=== PATIENT | male | born 1955 | race Caucasian/White ===

== ENCOUNTER → 2020-06-02 10:59 | Outpatient (CLI) | payer OTHER, SELFPAY ==
--- NOTE | 2020-06-02 11:04 | DI.MRI.S_ITS ---
PROCEDURE: MR KNEE RT WO CON INDICATIONS: RIGHT KNEE PAIN TECHNIQUE: Noncontrast sagittal PD fast spin echo and T2 fast spin echo with fat saturation, sagittal 3-D FLASH with fat saturation; coronal T1 spin echo and PD fast spin echo with fat saturation, and axial PD fast spin echo with fat saturation through the knee. COMPARISON: [facility], CR, XR KNEE 4+ VIEWS RIGHT, 04/19/2020, 9:46. FINDINGS: Image quality: Excellent. Menisci: Linear oblique high signal intensity traverses the posterior horn medial meniscus, demonstrating inferior articular surface extension. Partial detachment of the free edge of the posterior horn medial meniscus. Lateral meniscus is intact. Cruciate ligaments: The anterior cruciate ligament graft and posterior cruciate ligaments appear intact. Medial structures: The medial collateral ligament appears intact. Visualized portions of the pes anserinus tendons appear normal. No abnormal bursal fluid. Lateral structures: The lateral collateral ligament demonstrates low-grade partial-thickness tearing at the femoral origin. The long and short heads of the biceps femoris tendon appear intact. The popliteus tendon appears normal. Iliotibial band appears normal. Anterior structures: The quadriceps and patellar tendons appear intact. Mild T2 signal elevation within the quadriceps and patellar tendons at the patellar insertion sites. Patellar alignment is normal. No femoral trochlear dysplasia or ventral trochlear prominence. No edema in the infrapatellar fat pad. Bones and cartilage: No bone marrow contusions or fractures. There is mild tricompartmental periarticular osteophyte formation. Mild articular cartilage loss diffusely overlies the weight-bearing aspects of the medial femoral condyle and medial tibial plateau. Joint space: There is a small knee joint effusion and a trace Lozada's cyst. Small ganglion cyst along the popliteus. Normal appearing synovial plicae are incidentally noted. IMPRESSION: 1. Intact ACL graft. 2. Medial meniscal tear. 3. 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 4. Mild patellar and quadriceps tendinopathy. 5. Low-grade partial-thickness tearing of the lateral collateral ligament. Dictated by: Lashay Goodrich M.D. on 06/04/2020 at 12:36 Approved by: Lashay Goodrich M.D. on 06/04/2020 at 12:38
== END ==
PROVIDERS: Referring Provider Orthopaedic Surgery; Visit Provider Orthopaedic Surgery
DX: S83.241A Other tear of medial meniscus, current injury, right knee, initial encounter (principal); M17.11 Unilateral primary osteoarthritis, right knee; S83.421A Sprain of lateral collateral ligament of right knee, initial encounter
CPT/HCPCS: 73721

== ENCOUNTER → 2020-09-20 07:38 | Outpatient (CLI) | payer OTHER, SELFPAY ==
[2020-09-20 08:21] LABS: Add Manual Diff / Slide Review NO; Basophils Absolute Auto 100 /uL (0-100); Basophils Percent Auto 0.9 % (0-2); Eosinophils Absolute Auto 300 /uL (0-450); Hematocrit 41.8 % (41-53); Hemoglobin 14.3 g/dL (13.5-17.5); Lymphocytes Absolute Auto 2100 /uL (1100-4500); Lymphocytes Percent Auto 29.9 % (25-40); Mean Corpuscular HGB Conc 34.3 % (30-36); Mean Corpuscular Hemoglobin 31.6 PG (26-34); Mean Corpuscular Volume 92.2 fL (80-100); Monocytes Absolute Auto 600 /uL (0-900); Monocytes Percent Auto 8.3 % (3-14); Neutrophils Absolute Auto 3900 /uL (1500-7000); Neutrophils Percent Auto 55.9 % (50-75); Platelet Count 158 X10^3/uL (150-400); Red Blood Cell Count 4.53 X10^6/uL (4.5-5.9); Red Cell Distribution Width 14.1 % (11.6-14.8)
[2020-09-20 08:30] LABS: Hemoglobin A1C% w Est Avg Glu 5.5 % (4.0-6.0)
[2020-09-20 08:35] LABS: Blood Urea Nitrogen 15 mg/dL (9-20); Calcium 9.6 mg/dL (8.4-10.2); Carbon Dioxide 27 mmol/L (22-32); Chloride 105 mmol/L (98-107); Estimated Glomerular Filt Rate > 60.0 mL/min (>60); Glucose 104 mg/dL (80-110); HEMOLYSIS < 15 (0-50); Potassium 4.6 mmol/L (3.4-5.1); Sodium 139 mmol/L (137-145)
--- NOTE | 2020-09-20 11:01 | DI.CT.S_ITS ---
PROCEDURE: CT LUMBAR SPINE WO CON INDICATIONS: Spinal stenosis, lumbar region without neurogenic TECHNIQUE: Noncontrast 3 mm thick sections acquired from the T12 level to the sacrum. Sagittal and coronal reformats were constructed. For radiation dose reduction, the following was used: automated exposure control. COMPARISON: [facility], MR, MR LUMBAR SPINE WITHOUT CONTRAST, 07/25/2020, 8:53. [facility], CR, XR LUMBAR SPINE 2 OR 3 VIEWS, 09/04/2020, 15:46. FINDINGS: Image quality: Excellent. Bones: No acute vertebral body compression fractures. No suspicious lytic or blastic bony lesions. No pars defects. Mild levoconvex scoliotic curvature is noted. There is minimal retrolisthesis seen at the L1-L2 level. T12-L1: There is moderate loss of disc height. Mild generalized disc bulge is seen. No significant neural foraminal or central canal narrowing can be seen. L1-L2: Moderate to severe loss of disc height is seen. Vacuum disc phenomenon is seen at this level. Endplate irregularity and sclerosis can be seen. Mild to moderate disc bulge is seen at this level. There is [id number] left-sided and moderate right-sided neural foraminal narrowing seen. Mild central canal narrowing is seen. L2-L3: There is mild loss of disc height seen. Mild to moderate disc bulge is seen. Mild to moderate bilateral neural foraminal narrowing is seen. Mild to moderate central canal narrowing is seen. L3-L4: There is mild loss of disc height. Moderate disc bulge is seen at this level. Moderate bilateral neural foraminal narrowing is seen. Moderate central canal narrowing is seen. L4-L5: There is moderate loss of disc height. Moderate disc bulge is seen. Vacuum disc phenomenon is seen at this level. Moderate facet joint hypertrophy is seen. There is moderate to severe bilateral neural foraminal narrowing seen. At least moderate central canal narrowing is seen. L5-S1: Moderate to severe loss of disc height is seen. Vacuum disc phenomenon is seen at this level. Endplate irregularity and sclerosis can be seen. At least moderate disc bulge is seen. Moderate to severe bilateral neural foraminal narrowing is seen. Minimal central canal narrowing is seen. Soft tissues: No retroperitoneal masses or hematomas. Visualized aorta is normal in caliber. Colonic diverticulosis is seen, without findings of active diverticulitis. IMPRESSION: Multiple levels of lumbar spine degenerative change are seen, which are overall worst inferiorly. Degenerative changes are similar to the recent prior MRI. Incidental note is made of: Diverticulosis, without active diverticulitis Dictated by: Bran Sadler M.D. on 09/20/2020 at 13:33 Approved by: Bran Sadler M.D. on 09/20/2020 at 13:37
== END ==
PROVIDERS: Referring Provider Orthopaedic Surgery Orthopaedic Surgery of the Spine; Visit Provider Orthopaedic Surgery Orthopaedic Surgery of the Spine
DX: Z01.818 Encounter for other preprocedural examination (principal); Z01.812 Encounter for preprocedural laboratory examination; M48.061 Spinal stenosis, lumbar region without neurogenic claudication; M47.816 Spondylosis without myelopathy or radiculopathy, lumbar region; R73.9 Hyperglycemia, unspecified; K57.90 Diverticulosis of intestine, part unspecified, without perforation or abscess without bleeding
CPT/HCPCS: 36415; 72131; 80048; 83036; 85025; 93005; 93010

== ENCOUNTER → 2020-10-06 09:13 | Outpatient (CLI) | payer OTHER, SELFPAY ==
[2020-10-06 10:59] LABS: COVID19 -Nasal RAPID Negative (Negative)
== END ==
PROVIDERS: Referring Provider Physician Assistant; Visit Provider Physician Assistant
DX: Z20.822 Contact with and (suspected) exposure to COVID-19 (principal)
CPT/HCPCS: 87635

== ENCOUNTER 2020-10-08 05:57 | Day surgery (SDC) | payer OTHER, SELFPAY ==
[2020-10-01 12:22] VITALS: BMI 27.8
[2020-10-08] VITALS (17 sets, daily range): BP systolic 107–132; BP diastolic 62–93; PULSE 72–119; RESP 12–18; TEMP 35.2–37.2; O2SAT 90–98; BMI 27.8
--- NOTE | 2020-10-08 | DI.RAD.S_ITS ---
PROCEDURE: XR LUMBAR SPINE 2-3V INDICATIONS: L4-5, L5-S1 TLIF TECHNIQUE: 2 intraoperative views of the lumbar spine were acquired. COMPARISON: [facility], CT, CT LUMBAR SPINE WO CON, 09/20/2020, 11:03. FINDINGS: Bones: Pedicle screw fixation at L4-S1 with intervertebral body spacers. The pedicle screws project in the expected location. Anterior vertebral body osteophytes. IMPRESSION: Intraoperative guidance provided. Dictated by: Manuel Ogden M.D. on 10/08/2020 at 13:28 Approved by: Manuel Ogden M.D. on 10/08/2020 at 13:29
--- NOTE | 2020-10-08 07:30 | PM.PREOP ---
Pre-operative Note COVID-19 COVID-19 status: Negative Result date/Date tested (Pos, Neg/Pending): 10/06/20 Interval Note History & Physical reviewed/Exam performed by Physician: Yes Changes to H&P: No
[2020-10-08 07:49] LABS: INR 1.1 (0.9-1.3); Prothrombin Time 11.9 SECONDS (10.1-12.7)
[2020-10-08 07:52] LABS: PTT Partial Thromboplastin Tim 35 SECONDS (26.4-36.2)
[2020-10-08] MEDS: CEFAZOLIN 1 GM VIAL 2 GM IV ×2 (08:14→19:45)
--- NOTE | 2020-10-08 08:40 | SUR.OPER ---
Prone on spine table, head in foam head support, padded chest and pelvic supports, gel pad at knees, lower legs supported by pillows; nipples, genitalia and toes free of pressure, arms secured on foam padded arm boards at <90 degrees abduction. Tape over blanket at thigh secured to table.
[2020-10-08] MEDS: BUPIVACAINE LIPOSOME 266 MG/20 ML VIAL INJ (08:48)
[2020-10-08] MEDS: BUPIVACAINE 0.25% W/ EPI 30 ML VIAL INJ (08:48)
[2020-10-08] MEDS: LACTATED RINGERS 1,000 ML 42 ML IV (09:48)
[2020-10-08] MEDS: ACETAMINOPHEN IV 1,000 MG/100 ML VIAL 400 MG IV (11:00)
--- NOTE | 2020-10-08 12:22 | P.OP_ITS ---
Operative Date/Time/Diagnoses Date of procedure: 10/06/20 Time of procedure: 08:00 Pre-op diagnosis: 1. L4-5, L5-S1 spondylosis with radiculopathy 2. spinal stenosis with radiculopathy Post-op diagnosis: same Procedure & Clinicians Procedure: 1. L4-5, L5-S1 Postero-lateral and posterior interbody fusion 2. L4-5, L5-S1 interbody cage placement. 3. L4-5, L5-S1 decompressive laminectomy with bilateral facetecomies 4. L4-5, L5-S1 Posterior segmental instrumentation 5. [place] of bone marrow from iliac crest 6. Utilization of microsurgical technique and operating microscope 7. Robotic navigation assisted surgery Same procedure as scheduled: Yes Indications: Patient has been having chronic back pain and worsening lumbar radiculopathy. Patient failed multiple conservative management with worsening pain weakness and numbness in her lower extremity. Patient has been having difficulty performing activity of daily living. After discussing risks benefits of treatment options, patient elected proceed with surgery. Surgeon: Marta Rhodes Processing Specialist: Christos Child Click Yes if Unassisted: No Anesthesia Type: General Operative Notes Closure Type: primary Specimen(s): none sent Prosthetic devices, grafts, tissues, transplants, or devices: Globus CREO screws, Rise cages Applied: catheter Estimated Blood Loss (mL): 150 Blood products transfused: none Procedure in detail: Patient was seen in the preoperative area. Risks and benefits of the surgery was discussed with the patient. Informed consent was obtained from the patient and placed in the chart. Surgical site was marked. Patient was taken to the operative room. General anesthesia was administered. Prophylactic antibiotic was given to the patient less than 30 min before the incision was made. Patient was placed into a prone position on the Angel table. Patient's back was then prepped and draped in the sterile fashion. Time- out was performed at this time. After patient was prepped and draped, patient's PSIS was palpated and marked bilaterally. Small 1 cm incision was made over the PSIS for placement of the reference probes. Two trocar was placed into the PSIS 1 on each side. The reference probe was attached to the trocar of the reference apparatus. At this time the C-arm imaging was used to confirm AP and lateral of L4-L5, L5- S1 vertebrae and merged the C-arm imaging using the [employer] robotic navigation system with the CT of the lumbar spine. After successful merging was completed and confirmed, skin marker was used to anne out the skin incision using the [employer] robotic arm. Bilateral incision was made at this time. Pre templated trajectory was used and guided using the [employer] robotic navigation system for bilateral L4, L5, S1 pedicle screw placement. This was done by using the robotic arm to guide the high-speed bur to make a cortical entry point. Next a drill was placed also using the robotic arm and guided using the navigation system drilling partially through bilateral L4, L5 and S1 pedicles. Next L4, L5, S1 pedicle screws it was pre templated and measured was placed onto the power tow driver and inserted into the pedicles bilaterally. After all 6 screws were placed C-arm imaging was taken of both AP and lateral to confirm the placement. Excellent placement of the screws were confirmed and a matched precisely with the pre planned screw placement using the navigation system. MARs retractor was inserted using [employer] guidence. Globus MARS retractors was placed inside the incision and docked onto the L4 and L5 lamina. Using microsurgical technique and operating microscope, a L4, L5 laminectomy and L4-5, L5-S1 facetectomy was performed using a Kerrison rongeur. Patient was found have severe lateral recess and neural foramen stenosis which was fully decompressed after the laminectomy facetectomy. More than 75% of the facets were removed during the process of decompression rendering L4-5, L5-S1 level grossly unstable and required a fusion procedure at the same time. The disc space at L4-5, L5-S1 was identified, and a total diskectomy was performed at L4- 5, L5-S1 level. The endplates were decorticated using a rasp and shaver. The total diskectomy and decortication was performed at L4-5, L5-S1 level in order to to accomplish a L4-5, L5-S1 fusion. The local bone from the laminectomy and facetectomy was saved for local bone grafting. After the total diskectomy and decortication was completed, Trifecta bone graft material was combined with local bone that was harvested earlier. At this time, a separate skin is incision was made over the iliac crest. A Ja mshidi needle was inserted into the iliac crest through a separate skin incision. 5 cc of bone marrow aspiration was obtained through the separate skin incision using a Jamshidi needle from the iliac crest. The bone marrow aspiration was combined with local bone and the Tr[employer]ecta bone grafting material. The bone grafting material was placed into the L4-5, L5-S1 interbody space along with a expandable cage. The cage was expanded to its maximum height using the torque limiting screwdriver. The disc preparation as well as the cage insertion were also performed under navigation guidance. After the cage was placed, AP and lateral C-arm imaging was taken to confirm placement of the cage and excellent position was confirmed. Globus MARS retractor was inserted and docked onto the L4-5, L5-S1 p osterolateral gutter on the right side. Using the power drill, posterior- lateral decortication was performed at L4-5, L5-S1 level until bleeding cortical bone was identified. The remaining bone grafting material was placed into the L4-5, L5-S1 posterior lateral gutter he order to accomplish posterolateral fusion at the L4-5, L5-S1 level. At this time the tulips were attached to the L4, L5, S1 pedicle screw shanks. After measuring the length of the rods, they were inserted into the tulips of the pedicle screws and locked in place using locking caps and torque limiting screwdriver bilaterally. Total 6 caps and 2 titanium rods was used in order to complete the posterior instrumentation construct. After all the hardware was placed, and confirmed with AP and lateral C-arm imaging, the wound was then irrigated with sterile normal saline and packed with Ray-Kayla gauze for 3 min to accomplish hemostasis. After the gauze was removed the deep fascia was closed with #1 Vicryl suture. The subcutaneous layer was closed with 2-0 Vicryl. The skin was closed with skin lazarus. Patient tolerated the procedure well. There were no complications. Neuro monitoring system was used to monitor patient's neurologic status throughout entire procedure. There was no disturbance of the neural monitoring signals throughout the case. Complications: none Post-operative Condition: stable Disposition: PACU Plan for aftercare: Admit to inpatient hospital
[2020-10-08] MEDS: HYDROMORPHONE 2 MG INJ IV ×3 (12:50→13:18)
[2020-10-08] MEDS: OXYCODONE IR 5 MG TABLET PO (13:24)
--- NOTE | 2020-10-08 15:28 | PC.NURSE ---
Patient arrived to unit at approximately 1420, A&Ox3. VSS,afebrile. Denies numbness, tingling or decreased sensation to BLE's. Pt reports back discomfort at 3/10. Rubin draining clear yellow urine. Taking sips of water, denies n/v. MD Rhodes notified for orders. Continuous monitoring.
--- NOTE | 2020-10-08 16:14 | PC.NURSE ---
[id number] Per day shift RN, patient arrived on the floor post-operatively around 1415. No admission orders were placed. Called into the OR to obtain orders from Dr. Rhodes; no answer. Called Ortho office to connect with Dr. Monique (on-call), but he is also in the OR. Called Dr. Rhodes's cell phone, no answer, voicemail full. Faxed request into OR for orders.
--- NOTE | 2020-10-08 16:25 | PC.NURSE ---
report from Heydi, day shift RN: attempted contact of MD to write transfer/admit to ACU orders. awaiting orders. 1530 assessed for pain/discomfort. patient supine, slight facial grimace, reports 5/10 LBP. assisted w/ reposition, currently lying left side facing the window, supported w/ pillows, knees bent w/ pillow for support. RUE elevated on pillow. patient expressed relief 30 and 60 minutes later. sharemilker attempted contact to OR, requesting transfer/admit orders. awaiting orders.
[2020-10-08] MEDS: SODIUM CHLORIDE 0.9% 1,000 ML 100 ML IV (17:10)
[2020-10-08] MEDS: SENNOSIDES 8.6 MG TABLET 17.2 MG PO (21:00)
[2020-10-08] MEDS: DOCUSATE 100 MG CAPSULE PO (21:00)
[2020-10-08] MEDS: PANTOPRAZOLE DR 20 MG TABLET PO (21:01)
[2020-10-08] MEDS: OXYCODONE IR 5 MG TABLET 10 MG PO (21:01)
--- NOTE | 2020-10-08 23:19 | PC.NURSE ---
patient declined supper tray, preferred to drink fluids. tolerated side to side turning thru the shift. supported w/ pillows. leigh ann patent. OOB x 1 for toilet, passing gas. pain controlled. +CSMs.
--- NOTE | 2020-10-09 00:38 | PC.NURSE ---
Patient is alert and oriented. Breath sounds CTA with RA sat of 97%. HRR but tachy at 101 bpm. Denies nausea. BT hypoactive but states he has been passing flatus and had BM prior to surgery yesterday morning. Indwelling catheter is patent; urine is clear yellow. Able to move self in bed. Dressing to back is CDI; steristrip left lateral upper corner with small amount drainage. States pain is currently 4/10 and has ice pack for comfort and declines pain medication at this time. CMS is intact bilaterally. Wearing bilateral calf SCD's. Fall risk score is moderate and bed alarm is activated.
[2020-10-09 03:24] VITALS: BP 112/73; PULSE 94; RESP 18; TEMP 37.1; O2SAT 97
[2020-10-09] MEDS: SODIUM CHLORIDE 0.9% 1,000 ML 100 ML IV (03:27)
[2020-10-09] MEDS: CEFAZOLIN 1 GM VIAL 2 GM IV (03:49)
[2020-10-09] MEDS: OXYCODONE IR 5 MG TABLET 10 MG PO ×2 (03:52→12:02)
[2020-10-09 05:56] LABS: Hematocrit 39.6 % (41-53); Hemoglobin 13.3 g/dL (13.5-17.5)
--- NOTE | 2020-10-09 07:38 | PM.DS.1 ---
History of Present Illness History of Present Illness Date Patient Seen: 10/09/20 Time Patient Seen: 07:38 Chief complaint: Back pain Narrative: Patient's pain is moderate to severe. Denies fever or chills. No nausea vomiting. Patient has is home to assist him. Discharge Providers Provider Discharge Date: 10/09/20 Primary care physician: Doctor Neelam MD Consults: 10/04/20 14:19 Consult to Anesthesiology Routine Comment: Consulting Provider: Anesthesiologist Reason for consultation: PAC courtesy re: Abnormal pre-op EKG 10/08/20 17:04 Consult to Occupational Therapy Evaluate & Treat Comment: Physician Instructions: Evaluate and treat Consult to Physical Therapy Evaluate & Treat Comment: Physician Instructions: Evaluate and Treat Discharge provider: Bartolo Sarmiento PA-C Summary Hospital Course Discharge Diagnosis: 1. L4-5, L5-S1 spondylosis with radiculopathy 2. spinal stenosis with radiculopathy Hospital Course: 1. L4-5, L5-S1 Postero-lateral and posterior interbody fusion 2. L4-5, L5-S1 interbody cage placement. 3. L4-5, L5-S1 decompressive laminectomy with bilateral facetecomies 4. L4-5, L5-S1 Posterior segmental instrumentation 5. [place] of bone marrow from iliac crest 6. Utilization of microsurgical technique and operating microscope 7. Robotic navigation assisted surgery Same procedure as scheduled: Yes Indications: Patient has been having chronic back pain and worsening lumbar radiculopathy. Patient failed multiple conservative management with worsening pain weakness and numbness in her lower extremity. Patient has been having difficulty performing activity of daily living. After discussing risks benefits of treatment options, patient elected proceed with surgery. Surgeon: Marta Rhodes Broker Associate: Christos Child Click Yes if Unassisted: No Anesthesia Type: General Operative Notes Closure Type: primary Specimen(s): none sent Prosthetic devices, grafts, tissues, transplants, or devices: Globus CREO screws, Rise cages Applied: catheter Estimated Blood Loss (mL): 150 Blood products transfused: none Patient admitted to the hospital for the above-mentioned procedure. Patient consented to the same. Patient taken operating room underwent lumbar fusion. Patient back in his room recovering well as in stable condition. Rubin will be discontinued. Patient mobilize with physical therapy. Patient will be discharged home in stable condition is safe in for home environment and able to urinate on his own. Exam Vital Signs (past 8 hours): - 10/09/20 03:24 Temperature 98.7 F Pulse Rate 94 H Respiratory Rate 18 Blood Pressure 112/73 Pulse Oximetry 97 Oxygen Delivery Method Room Air Oxygen Flow Rate 0 Narrative Exam Narrative: 65-year-old male resting comfortably in bed in no apparent distress. Lumbar dressing is Clean, dry, intact.. Motor functions intact bilateral lower extremities. Sensation grossly intact to light touch bilateral lower extremities. Both legs are warm and dry. Objective Labs Result Diagrams: 10/09/20 05:37 Labs: Laboratory Results - last 24 hr 10/08/20 10/09/20 07:30 05:37 Hgb 13.3 L Hct 39.6 L PT 11.9 INR 1.1 APTT 35 PFSH Medical History Arthritis GERD (gastroesophageal reflux disease) Nasal fracture Sciatica Surgical History History of arthroscopy of both knees History of colonoscopy History of surgery Hx of appendectomy Hx of right knee surgery Social History household members: spouse Smoking Status: Never smoker alcohol intake: current Discharge Assessment & Plan Assessment and Plan Assessment: Patient progressing as expected status post lumbar fusion Plan of Treatment: Mobilize with physical therapy. Discontinue Rubin catheter. Patient will be discharged home today after physical therapy if safe for home environment. Patient also need to urinate on his own prior to discharge. Discharge Plan Discharge Plan Patient Disposition: Home Discharge orders & Medications Discharge Orders: Discharge (Order); Ordered 10/09/20 Ordered By: Bartolo Sarmiento Prescriptions: New docusate sodium [DOK] 100 mg Capsule 100 mg PO BID Qty: 20 RF: 0 oxycodone 5 mg Tablet 10 mg PO Q3HR PRN (Reason: Pain, Severe (7-10)) Qty: 45 RF: 0 hydroxyzine pamoate 25 mg Capsule 25 mg PO Q4HR PRN (Reason: Nausea And Vomiting) Qty: 30 RF: 0 Continued aspirin [Aspirin Low Dose] 81 mg Tablet,Delayed Release (Dr/Ec) 81 mg PO DAILY RF: 0 acetaminophen [Acetaminophen Extra Strength] 500 mg Tablet 1,000 mg PO TID PRN (Reason: Pain) RF: 0 ibuprofen 200 mg Tablet 400 mg PO Q6H PRN (Reason: Pain) RF: 0 fluticasone propionate 50 mcg/actuation [place],Suspension 1 spray INTRANASAL DAILY PRN (Reason: Seasonal allergies) RF: 0 omeprazole 20 mg Tablet,Delayed Release (Dr/Ec) 20 mg PO BEDTIME RF: 0 Follow up/Referrals: Marta Rhodes MD [Physician] - (2 weeks) Doctor Richter MD [Primary Care Provider] - Diet/Activity/Treatments Diet: Diet as Tolerated Activity: Limit bending, twisting, lifting Cold/Heat Therapy: Apply ice as needed Skin/Wound/Dressing Care Report to your healthcare provider any signs of infection, such as:: chills, fever, increased pain, unusual drainage and unusual redness Dressing: Keep dressing clean and dry Visit Report/Discharge Packet Instructions: DI for Transforaminal Lumbar Interbody Fusion Stand Alone Forms: Surgery Discharge Discharge Data Primary Care Provider: Doctor Neelam Attending Provider: Marta Rhodes
[2020-10-09] MEDS: DOCUSATE 100 MG CAPSULE PO (08:21)
[2020-10-09] MEDS: ACETAMINOPHEN 325 MG TABLET 650 MG PO (08:21)
--- NOTE | 2020-10-09 09:00 | PT.IIE ---
Current Diagnoses Foot drop, right foot (10/08/20) Spondylolisthesis, lumbar region (10/08/20) Spinal stenosis, lumbar region with neurogenic claudication (10/08/20) Surgery Performed Operation Date: 10/08/20 07:45 Actual Procedures p L4-5, L5-S1 TLIF with posterior instrumentation - Marta Rhodes MD Medical History (Last Reviewed 10/09/20 @ 07:40 by Bartolo Sarmiento PA-C) Arthritis GERD (gastroesophageal reflux disease) Nasal fracture Sciatica Physical Therapy Inpatient Evaluation/Re-Eval M1 PT/OT-IP Prior Functional Status Start: 10/09/20 11:59 Freq: NEEDED Status: Active Protocol: Document 10/09/20 11:09 [facility] (Rec: 10/09/20 12:12 [facility] [id number]) Medical Review Prior Functional Status Communication Independent. Mobility and Gait Pt states was independent and did not use a device for mobility needs. Activities of Daily Living and IADL's Pt states his pain would limit his sleep and from driving. Social History Household Members spouse Living Arrangements House Number of Floors (Floors) Two Floors Number of Stairs To Enter/Railing? No steps to enter the house and 7 steps with left rail going up to the bedrom level. Home Environment Standard Height Toilet,Walk in Shower,Tub/Shower Home Equipment Front Wheel Walker,Four Wheel Walker,Raised Toilet Seat w/ Armrests,Hand Held Shower, Parole Board Member Additional Social History Comment Pt will be available to assist pt for any needs. M2 PT-IP Current Condition Start: 10/09/20 12:04 Freq: NEEDED Status: Active Protocol: Document 10/09/20 09:00 AB (Rec: 10/09/20 12:22 AB [id number]) Physical Therapy Current Condition Current Condition Evaluation Date 10/09/20 Treatment Diagnosis s/p L4-5, L5S1 post/lat fusion /lami; difficulty in walking Onset Date 10/08/20 Precautions Lumbar Precautions Log Roll,No Twisting,Limit Bending,Lifting Restriction of 10 lbs,Gait Belt above Incisional Area M3 PT-IP Subjective Start: 10/09/20 12:04 Freq: NEEDED Status: Active Protocol: Document 10/09/20 09:00 AB (Rec: 10/09/20 12:22 AB [email or web address]) Subjective Physical Therapy Visit Type Type Initial Evaluation Visit Start Time 09:00 Visit Stop Time 09:48 Total Visit Minutes 48 Number of MEMBERSHIP ADVISOR Visits 0 Physical Therapy Visit Comments Patient Comments pt is agreeable to do PT Therapy Pain Assessment Pain When Pain Assessed At Rest Pain Present Pain Present Pain Reported Location Back Intensity 4 Scale Used Numeric (0 - 10) Pain Management Techniques Distraction,Modification of Treatment,Re-positioning, Timing of Activity with Medications M4 PT-IP Mobility and Gait Start: 10/09/20 12:04 Freq: NEEDED Status: Active Protocol: Document 10/09/20 09:00 (Rec: 10/09/20 12:22 [id number]) PT-Bed Mobility Assessment Rolling Type of Rolling Log Rolling Level of Assist Standby Assistance Supine to Sit Supine to Sit Independent Sit to Supine Sit to Supine Standby Assistance PT-Transfer Assessment Sit to and From Stand Sit to and from Stand Standby Assistance,Contact Guard Assistance,1 Person Assistance,Use of Upper Extremities Equipment Transfer Assistive Device Gait Belt,Front Wheeled Walker Orthotic/Prosthetic Devices or Brace: Yes Transfers Transfer Destination Bed,Chair Transfer Technique ambulated using FWW Transfer Ability Level of Assist Standby Assistance,Contact Guard Assistance,1 Person Assistance,Use of Upper Extremities Comments Mobility Comments educated pt on back precautions and log roll bed mobility. pt was able to recall. completed sit to stand from the chair CGA and ambulated to the bed using FWW SBA to CGA. completed log roll sit<>supine SBA. pt agreed to ambulate in the hallway. completed sit to stand from EOB SBA and ambulated in [facility] hallway ~ 200 ft using FWW SBA to CGA towards end of ambulation with unsteadiness noted. educated pt on pacing and gradual progressing of activites. pt agreed. completed up/down steps with pt holding on to R rail with B hands SBA and then completed again with using L rail SBA. pt ambulated back to his room and to the toilet using FWW sBA. completed toileting SBA. ambulated out of the toilet using FWW SBA and to the sink and was able to complete handwashing SBA. pt requested to go back to bed and ambulated to the bed using fWW SBA. completed sit to supine SBa. positioned pt in bed. call light and table placed within reach. Gait Assessment Gait Gait Assistance Required: Standby Assistance,Contact Guard Assist Comments Gait Comments pls refer to mobility section for details Stair Climbing Assessment Evaluation Level of Assist On Stairs Standby Assistance Devices Stair Climbing Assistive Devices Left Railing,Right Railing Technique/Endurance Stair Climbing Direction Ascend and Descend Stair Climbing Technique Step to Step Number of Steps Climbed 3 Query Text: Stair Climbing Set # Repetitions (reps) 2 Comments Stair Climbing Comments pls refer to mobility section for details PT-Balance Assessment Sitting Balance and Reactions Static Sitting Balance Ability Good Dynamic Sitting Balance Ability Good Standing Balance and Reactions Static Standing Balance Ability Fair Dynamic Standing Balance Ability Fair Device Used FWW M5 PT-IP Objective Assessments Start: 10/09/20 12:04 Freq: NEEDED Status: Active Protocol: Document 10/09/20 09:00 AB (Rec: 10/09/20 12:22 [id number]) Orientation Orientation/Cognition Level of Alertness Alert Orientation Name,Age,Birthday,Month,Date, Year,Day of Week,Place, Situation Language Function Ability No Deficits Noted Safety Awareness Understands Safety Issues Memory Description No Deficits Noted Gross Range of Motion Lower Extremity ROM Assessment Within Functional Limits Strength Comments Strength Comments LLE: 4+/5 RLE 4-/5 Coordination Assessment Gross Coordination Gross Coordination WNL Sensation Assessment Sensation Gross Sensation WNL Muscle Tone Muscle Tone WNL Yes M6 PT-IP Treatment Start: 10/09/20 12:04 Freq: NEEDED Status: Active Protocol: Document 10/09/20 09:00 AB (Rec: 10/09/20 12:22 [email or web address]) Physical Therapy Treatment Education Education Provided Precautions,Weight Bearing Status,Post-Op Packet,Safety M7 PT-IP Assessment and Plan Start: 10/09/20 12:04 Freq: NEEDED Status: Active Protocol: Document 10/09/20 09:00 [facility] (Rec: 10/09/20 12:22 [email or web address]) PT Summary Assessment and Plan Potential Rehabilitation Potential Good Status of Condition at Evaluation Stable Summary Impairments Pain,ROM,Strength,Balance, Coordination,Sensation,Tone, Cognition,Bed Mobility, Transfers,Gait,Activity Tolerance Assessment Summary pt requiring SBA to CGA with mobility using FWW. pt is aware of his precautions and able to maintain during mobility. pt plans to go home with spouse to assist him as needed. pt may go home when medically stable. Goals Bed Mobility Goal Independent Transfer Goal Independent,Front Wheeled Walker Gait Goal Independent,Front Wheel Walker Gait Distance 250 Other Goals up/down 8 steps R rail mod I up/down 8 steps L rail mod I Days to Meet Goals 5 Frequency of Treatment Frequency Of Treatment Twice a Day Treatment Plan Physical Therapy Treatment Plan Bed Mobility Training,Transfer Training,Gait Training, Therapeutic Exercise,Balance Retraining,Post Op Education, Discharge Planning,Hot or Cold Pack,Neuromuscular Re-ed, Coordination Retraining,Manual Therapy Precautions Lumbar Precautions Log Roll,No Twisting,Limit Bending,Lifting Restriction of 10 lbs,Gait Belt above Incisional Area Recommendations To Nursing Amount of Assist Needed 1 Person Assist Discharge Recommendations PT Discharge Recommendations Home with Assistance Transportation Needs at Discharge Private Vehicle
[2020-10-09 10:00] VITALS: BP 135/85; PULSE 85; RESP 16; TEMP 36.6; O2SAT 96
--- NOTE | 2020-10-09 11:09 | OT.IP.EVAL ---
Current Diagnoses Foot drop, right foot (10/08/20) Spondylolisthesis, lumbar region (10/08/20) Spinal stenosis, lumbar region with neurogenic claudication (10/08/20) Surgery Performed Operation Date: 10/08/20 07:45 Actual Procedures p L4-5, L5-S1 TLIF with posterior instrumentation - Marta Rhodes MD Past Medical History (Last Reviewed 10/09/20 @ 07:40 by Bartolo Sarmiento PA-C) Arthritis GERD (gastroesophageal reflux disease) History of arthroscopy of both knees History of colonoscopy History of surgery Hx of appendectomy Hx of right knee surgery Nasal fracture Sciatica Surgical History (Last Reviewed 10/09/20 @ 07:40 by Bartolo Sarmiento PA-C) History of arthroscopy of both knees History of colonoscopy History of surgery Hx of appendectomy Hx of right knee surgery Occupational Therapy Inpatient Evaluation/Re-Eval M1 PT/OT-IP Prior Functional Status Start: 10/09/20 11:59 Freq: NEEDED Status: Active Protocol: Document 10/09/20 11:09 [facility] (Rec: 10/09/20 12:12 [facility] [id number]) Medical Review Prior Functional Status Communication Independent. Mobility and Gait Pt states was independent and did not use a device for mobility needs. Activities of Daily Living and IADL's Pt states his pain would limit his sleep and from driving. Social History Household Members spouse Living Arrangements House Number of Floors (Floors) Two Floors Number of Stairs To Enter/Railing? No steps to enter the house and 7 steps with left rail going up to the bedroom level. Home Environment Standard Height Toilet,Walk in Shower,Tub/Shower Home Equipment Front Wheel Walker,Four Wheel Walker,Raised Toilet Seat w/ Armrests,Hand Held Shower, Trimming Press Operator Additional Social History Comment Pt will be available to assist pt for any needs. M2 OT-IP Current Condition Start: 10/09/20 11:59 Freq: Status: Active Protocol: Document 10/09/20 11:09 [facility] (Rec: 10/09/20 12:12 [facility] [id number]) Occupational Therapy Current Condition Current Condition Evaluation Date 10/09/20 Treatment Diagnosis S/p L4-5, L5-S1 TLIF, decreased self -care Diagnosis Onset Date 10/08/20 Post Operative Precautions Lumbar Precautions Log Roll,No Twisting,Limit Bending,Lifting Restriction of 10 lbs,Gait Belt above Incisional Area M3 OT- IP Subjective and Pain Start: 10/09/20 11:59 Freq: Status: Active Protocol: Document 10/09/20 11:09 [facility] (Rec: 10/09/20 12:12 [facility] [id number]) OT- Subjective Occupational Therapy Visit Type Type Initial Evaluation Visit Start Time 11:09 Visit Stop Time 11:39 Total Visit Minutes 30 Occupational Therapy Visit Comments Patient Comments Pt agreed to do OT eval. Patient/Caregiver Goals To go home. OT Pain Assessment Pain When Pain Assessed At Rest Pain Present Pain Present Pain Reported Location Back Intensity 4 Scale Used Numeric (0 - 10) M4 OT- IP ADL's Start: 10/09/20 11:59 Freq: Status: Active Protocol: Document 10/09/20 11:09 [facility] (Rec: 10/09/20 12:12 [facility] [id number]) OT [id number] Comments OT Self-Feeding Comments NOt at meal time. OT ADL-Oral Care General Eval Oral Care Ability Standby Assistance Comments Oral Care Comments Educated to spit into a cup to best follow his back precautions for oral care needs. OT ADL-Dressing General Eval Upper Body Dressing Ability Independent Lower Body Dressing Ability Minimal Assistance Areas Needing Assistance Retrieving/Set-up of Clothing Comments OT Dressing Comments Educated pt on use of alcohol still operator, sock aid and long handled sponge to best follow his back precautions. Pt needings assist to tie his shoes.Pt issued sock aid, long handled shoe horn and sponge. OT ADL-Toileting Comments OT Toileting Comments Pt did not have to go. Able to suggest wet wipes can be helpful for hygiene needs and standing to wipe would be best to follow his back precautions. OT ADL-Bathing Comments OT Bathing Comments Pt wanting to shower at home. Pt states has a built in shower seat in the walk in shower. M5 OT- IP IADL's Start: 10/09/20 11:59 Freq: Status: Active Protocol: Document 10/09/20 11:09 [facility] (Rec: 10/09/20 12:12 [facility] [id number]) OT-Instrumental Activities of Daily Living Home Safety Awareness Awareness of Need for Assistance at Home Good Awareness Ability to Problem Solve Emergency Able to Problem Solve Situations Home Safety Comments Pt states his to assist as needed at home. M6 OT- IP Functional Cognition Start: 10/09/20 11:59 Freq: Status: Active Protocol: Document 10/09/20 11:09 [facility] (Rec: 10/09/20 12:12 [facility] [id number]) Cognitive Factors Limiting Selfcare Function Cognitive Ability Level of Alertness Alert Patient Orientation Name,Age,Birthday,Month,Date, Year,Day of Week,Place, Situation Attention Span Ability Capable of Focused Attention, Capable of Sustained Attention Ability to Follow Commands Able to Follow Multi-Step Commands Memory Description No Deficits Noted Safety Awareness No Deficits Noted Problem Solving Ability No deficits Noted Cognitive Comments Cognitive Assessment Comments Pt cognitively intact with no issues on OT eval. OT- Vision and Hearing OT- Hearing Assessment OT- Hearing Assessment WFL OT- Vision Assessment Visual Acuity Glasses For Reading M7 OT- IP Mobility and Balance Start: 10/09/20 11:59 Freq: Status: Active Protocol: Document 10/09/20 11:09 [facility] (Rec: 10/09/20 12:12 [facility] [id number]) OT- Bed Mobility Assessment Rolling Type of Rolling Roll to Left Level of Assistance Standby Assistance Supine to Sit Supine to Sit Assist Standby Assistance Sit to Supine Sit to Supine Assist Standby Assistance Scooting Scooting to Edge of Bed Standby Assistance OT-Transfer Assessment Sit to and From Stand Sit to and from Stand Standby Assistance Technique Transfer Destination Bed,Chair Transfer Technique Stand Step Pivot Devices Transfer Assistive Devices Front Wheeled Walker Comments Mobility Comments SBA with FWW in the room with good safety. Pt tends to grab the FWW to assist to stand. However, pt able to do so with good safety. OT- Balance Assessment Sitting Balance and Reactions Static Sitting Balance Ability Normal Dynamic Sitting Balance Ability Good Standing Balance and Reactions Static Standing Balance Ability Good Dynamic Standing Balance Ability Fair M8 OT- IP Objective Assessments Start: 10/09/20 11:59 Freq: Status: Active Protocol: Document 10/09/20 11:09 [facility] (Rec: 10/09/20 12:12 [facility] [id number]) OT Gross Range of Motion Upper Extremity Range of Motion ROM Impairments WFl for ADl's M9 OT- IP Assessment and Plan Start: 10/09/20 11:59 Freq: Status: Active Protocol: Document 10/09/20 11:09 [facility] (Rec: 10/09/20 12:12 [facility] [id number]) OT Summary Assessment and Plan Potential Rehabilitation Potential Excellent Analytic Complexity at Evaluation Low Summary OT Impairments Pain,Balance,Dressing,Bathing Progress Towards Goals Progressing Toward Goals Assessment Summary Pt low complexity and main barriers are pain, and needing use of devices for LB dressing needs. Pt has a supportive to assist at home. Pt to go home when medically stable. Goals Grooming Goal Independent Dressing Goal Independent Toileting Goal Independent Bathing Goal Independent Toilet Transfer Goal Independent Shower Transfer Goal Independent Patient/Caregiver Education Goal Demonstrate Post-Op Precautions Days to Meet Goals 1 Frequency of Treatment Frequency Of Treatment Once a Day Treatment Plan OT Treatment Plan ADL Training,Functional Mobility,Patient/Family Education,Discharge Planning Other Treatment Recommendations and Next Shower if still here. Treatment Focus Discharge Recommendations OT Discharge Recommendations Home with Assistance Transportation Needs at Discharge Private Vehicle
--- NOTE | 2020-10-09 11:24 | PC.NURSE ---
Addendum entered by Mariella Gonzalez R.N. 10/09/20 12:43: Went over dc instructions and medications with patient and patients spouse, questions answered. Rx sent electronically. Patient taken via wc to vehicle driven by spouse, patient had all belongings. Original Note: patient up walking with physical therapy and working with OT rates back pain 5/10 at this highest, given tylenol as requested. Changed dressing per Michael CALVILLO. Placed one non adherent island barrier dressing to back, lazarus intact, no drainage noted. Patient voided 550cc clear yellow urine post beltrán removal.
--- NOTE | 2020-10-09 11:58 | CM.DANOTE ---
DCP/Assessment: Reviewed chart. Patient is a 65yr old male admitted to [facility] for elective [facility] surgery performed on 10-08-20. Patient denies having PCP. Primary payor is 1)Debby CORTES. Met with patient this AM explained CM/SW role. Patient sitting in recliner fully dressed at time of visit. Patient reports that he is discharging home today. Patient seen by OT/PT. Patient reports that he has supportive spouse at home. No identified d/c planning needs at this time. Patient encouraged to obtain PCP. P: Home today. [facility] Discharge Planning/Care Management CM Discharge Assessment Start: 10/09/20 11:56 Freq: Status: Active Protocol: Document 10/09/20 11:56 [facility] (Rec: 10/09/20 11:58 [facility] [id number]) Discharge Planning Assessment Assigned Client Services Account Manager CECILIO Hale Contact Information Sunshine Irvingoumou (spouse) # [phone] Advance Directives? Yes Advance Directives on File Yes History Provided By Patient,Medical Record Prior Living Arrangements House Household Members spouse Type of transporation used prior to Drives own vehicle admit Independent with ADL's Yes Is patient alert and oriented? Yes Caregiver for Another No DME Already Rented / Owned FWW / Walker Barriers to Discharge No Discharge Plan Home Transportation Arrangement Family to provide transport. Referrals Initiated None needed Review Status In Process Next Review Type Continued Stay Review Pre-Anesthesia Assessment Start: 10/01/20 12:22 Freq: Status: Complete Protocol: Document 10/01/20 12:22 [facility] (Rec: 10/01/20 13:06 [facility] [id number]) Pre-Anesthesia Assessment Patient Information Reviewed Via Phone Assessment Assessment Completed With Patient Diagnostic Results BMP/CMP,CBC,EKG Comment Labs/EKG @ [facility] 09/20/20, COVID screen @ 10/06/20 Primary Care Provider N/A Seen Specialist in Last 12 Months Yes Specialist Seen Orthopedist Primary Language Arabic Case Technician Required No Height 165.1 cm Weight 75.75 kg Body Mass Index (BMI) 27.8 Hearing Ability Normal Visual Impairment No Limitations Visual Assist None Dentition Type Teeth, Natural Present Barriers to Learning None Hx Anesthesia Reactions No Hx Family Anesthesia Reaction No Hx Malignant Hyperthermia No Hx Blood Transfusions No Anesthesia Review Requested Yes: PAC courtesy re: Abnormal pre-op EKG alcohol intake current alcohol intake frequency 0-2 drinks per day Smoking Status Never smoker Substance Use Type does not use Pain Present Pain Reported Musculoskeletal Symptoms Abnormal Gait,Back Pain, Difficulty Walking,Radiating Pain into Limb History of Falling (Recent or History of No ) Patient is completely paralyzed or No completely immobile Mental Status Oriented to own ability Is patient on oxygen? No Does patient have ZACARIAS/SOB No Hx Sleep Apnea No Currently Taking a Beta [place] No Can You Climb a Flight of Stairs Without Yes SOB Hx Chest Pain No Hx SOB No Hx Syncope or Dizziness No Anti-Coagulant Therapy No Has a Hose Maker No Cardiac Testing No Hx Pacemaker/ICD No Pacemaker Rep Required? No Cardiac Clearance Received Not Applicable Comment Very active previously, spin bike daily Diet Type At Home Regular dysphagia No Gastrointestinal Symptoms Reflux Urinary Catheter Present No Hx Urinary Self Catheterization No Diabetes No Hx Drug Resistant Organism No Presence of External or Internal Medical Yes: Jaw hardware Devices Have you had any close contact with No someone diagnosed with COVID-19? Marital Status Lives With spouse Prior Living Arrangements House Number of Floors (Floors) 3 or More Floors Support System Spouse Does the Patient Have Assistance After Yes Surgery Patient Discharge Plan Description Return Home Comment Pt advised 2 day length of stay per surgeon Feels Safe in Current Environment Yes Been Physically Hurt or Threatened By a No Person in Current Environment Do you have thoughts of harming yourself None or others? Are you currently considering suicide? No Do you have a plan to hurt yourself or No Plan others? Do You Have Any Spiritual Beliefs That No May Affect Your HC Choices? Do You Have Any Cultural Practices That No May Affect Your HC Choices? Comment Bahai Who Can We Speak to About Patient's Care Family, friends Identifying Code for Release of Patient Declines to issue Information Health Care Proxy/Next of Kin Sunshine () Health Care Proxy Emergency Contact Name Sunshine () Emergency Contact Advance Directives? Yes Power of Senior Administrative Assistant Yes Power of Senior Administrative Assistant Name Sunshine () Power of Senior Administrative Assistant PAC Instructions Durable medical equipment, Medications to take/avoid, Nasal antibiotic,No ETOH/ petroleum product on skin DOS, NPO,Post-op transportation, Sturdy shoes/comfortable clothes,Do not bring valuables and remove jewelry
== END 2020-10-09 12:45 | disposition home or self-care (01) ==
LOC: OR 06:01 → AC 06:02
PROVIDERS: Referring Provider Orthopaedic Surgery; Visit Provider Orthopaedic Surgery Orthopaedic Surgery of the Spine
PROC: (CPT 22633; principal; 2020-10-08 07:45)
DX: M48.062 Spinal stenosis, lumbar region with neurogenic claudication (principal); M43.16 Spondylolisthesis, lumbar region; M21.371 Foot drop, right foot
CPT/HCPCS: 22633; 20939; 22634; 22842; 22853 ×2; 63047; 63048; 36415; 72100; 76000; 85014; 85018; 85610; 85730; 97116; 97161; 97165; 97530; 97535; C1776; C9290; J0131; J0330; J0690; J1100; J1170; J2250; J2405; J2704; J3010

== ENCOUNTER → 2021-02-12 13:00 | Outpatient (CLI) | payer OTHER, SELFPAY ==
[2020-10-08 06:19] VITALS: BMI 27.8
--- NOTE | 2021-02-12 | DI.CT.S_ITS ---
PROCEDURE: CT LUMBAR SPINE WO CON INDICATIONS: Spondylolisthesis, lumbar region TECHNIQUE: Noncontrast 3 mm thick sections acquired from the T12 level to the sacrum. Sagittal and coronal reformats were constructed. For radiation dose reduction, the following was used: automated exposure control. COMPARISON: [facility], CT, CT LUMBAR SPINE WO CON, 09/20/2020, 11:03. FINDINGS: Image quality: Excellent. Bones: There is normal bony alignment. No acute vertebral body compression fractures. No suspicious lytic or blastic bony lesions. No pars defects. L4-5 and L5-1 interbody fusion with fusion cage, right hemilaminectomy, right medial facetectomy as well as posterior paulette and screw instrumentation. T12-L1: Disc space narrowing small anterior osteophyte without central or foraminal stenosis. L1-L2: Disc space narrowing and degenerative endplate changes present. Circumferential disc bulge results in mild central stenosis. Moderate bilateral foraminal stenosis noted. L2-L3: Mild disc space narrowing and asymmetric left disc bulge present with mild central stenosis. Moderate left and mild right foraminal stenosis present. L3-L4: Disc space narrowing and circumferential disc bulge results in moderate central stenosis. Hypertrophic facet joints contribute to moderate bilateral foraminal stenosis. L4-L5: Discectomy and fusion. Central canal is decompressed. No right foraminal stenosis. Severe left foraminal stenosis related to hypertrophic facet joints present. L5-S1: Discectomy and fusion present. No central or right foraminal stenosis. Moderate left foraminal stenosis. IMPRESSION: 1. L4-5 and L5-S1 discectomy and fusion with posterior instrumentation in good position. No hardware failure loosening. 2. Multilevel degenerative disc disease and arthropathy results in varying degrees of central and foraminal stenosis including moderate central stenosis at L3-4 and severe left foraminal stenosis L4-5 Approved by: Laureano Beltran M.D. on 02/12/2021 at 14:30
== END ==
PROVIDERS: Referring Provider Orthopaedic Surgery Orthopaedic Surgery of the Spine; Visit Provider Orthopaedic Surgery Orthopaedic Surgery of the Spine
DX: M43.16 Spondylolisthesis, lumbar region (principal); M51.36 Other intervertebral disc degeneration, lumbar region; M47.816 Spondylosis without myelopathy or radiculopathy, lumbar region; M48.061 Spinal stenosis, lumbar region without neurogenic claudication; M48.07 Spinal stenosis, lumbosacral region; Z98.1 Arthrodesis status
CPT/HCPCS: 72131